=== PATIENT | female | born 1965 | race Caucasian/White ===

== ENCOUNTER 2018-05-27 13:11 | Emergency (ER) | payer OTHER, MEDICAID | END 2018-05-27 15:45 | disposition home or self-care (01) | LOC: FTE 13:11 | DX: Z00.00 Encounter for general adult medical examination without abnormal findings (principal); I12.0 Hypertensive chronic kidney disease with stage 5 chronic kidney disease or end stage renal disease; N18.5 Chronic kidney disease, stage 5; E11.22 Type 2 diabetes mellitus with diabetic chronic kidney disease; Z79.01 Long term (current) use of anticoagulants; Z79.84 Long term (current) use of oral hypoglycemic drugs | CPT/HCPCS: 71045; 99283-25 ==

== ENCOUNTER 2018-08-28 19:38 | Inpatient (IN) | payer OTHER ==
[2018-08-28] MEDS ORDERED: LABETALOL HCL 20MG INJ IV (20:30)
[2018-08-28 20:34] LABS: ADD MAN DIFF? NO
[2018-08-28 20:35] LABS: BASOPHIL # 0.1 10^3/ul (0.0-0.1); BASOPHILS % 0.8 % (0.0-2.0); EOSINOPHILS # 0.7 10^3/ul (0.0-0.5); HEMATOCRIT 32.9 % (37.0-47.0); HEMOGLOBIN 10.5 g/dl (12.0-16.0); LYMPHOCYTES # 2.2 10^3/ul (0.8-2.9); LYMPHOCYTES % 25.1 % (15.0-51.0); MEAN CORPUSCULAR HEMOGLOBIN 30.3 pg (29.0-33.0); MEAN CORPUSCULAR HGB CONC 31.9 g/dl (32.0-37.0); MEAN CORPUSCULAR VOLUME 94.8 fl (82.0-101.0); MEAN PLATELET VOLUME 10.5 fl (7.4-10.4); MONOCYTE # 0.8 10^3/ul (0.3-0.9); MONOCYTES % 8.8 % (0.0-11.0); NEUTROPHIL # 4.9 10^3/ul (1.6-7.5); NEUTROPHILS % 57.1 % (39.0-77.0); PLATELET COUNT 319 10^3/UL (140-415); RED BLOOD COUNT 3.47 10^6/ul (4.20-5.40); RED CELL DISTRIBUTION WIDTH 12.4 % (11.5-14.5)
[2018-08-28 20:35] LABS: WHITE BLOOD COUNT 8.6 10^3/ul (4.8-10.8)
[2018-08-28 20:54] LABS: ALANINE AMINOTRANSFERASE 15 IU/L (13-69); ALBUMIN 4.6 g/dl (3.3-4.9); ALBUMIN/GLOBULIN RATIO 1.02; ALKALINE PHOSPHATASE 154 IU/L (42-121); ANION GAP 19 (5-13); ASPARTATE AMINO TRANSFERASE 27 IU/L (15-46); BLOOD UREA NITROGEN 68 mg/dl (7-20); CALCIUM 9.2 mg/dl (8.4-10.2); CARBON DIOXIDE 31 mmol/L (21-31); CHLORIDE 89 mmol/L (97-110); CREATININE 9.91 mg/dl (0.44-1.00); GLUCOSE 159 mg/dl (70-220); LIPASE 179 U/L (23-300); SODIUM 139 mmol/L (135-144); TOTAL PROTEIN 9.1 g/dl (6.1-8.1)
[2018-08-28 21:00] LABS: POTASSIUM 8.1 mmol/L (3.5-5.1)
[2018-08-28] MEDS: LORAZEPAM 2 MG INJ IV (21:02)
[2018-08-28] MEDS: CA CHLORIDE 10% 10 ML SYRINGE IV (21:26)
[2018-08-28] MEDS: NA BICARBONATE 8.4% 50 ML SYG IV (21:26)
[2018-08-28] MEDS: DEXTROSE 50% 50 ML SYRINGE IV (21:28)
[2018-08-28] MEDS: NA POLYST SULFON 15 GM/60 ML BTL PO (21:29)
[2018-08-28] MEDS: INSULIN REGULAR, HUMAN 100 UNIT/1 ML 3ML VIAL IVP (21:31)
[2018-08-28] MEDS ORDERED: ONDANSETRON 4 MG INJ IV (22:00)
[2018-08-28] MEDS ORDERED: ACETAMINOPHEN 325 MG TAB PO (22:00)
[2018-08-28] MEDS: ALBUTEROL 0.5% (NEB) 2.5 MG/0.5 ML AMP INH (22:08)
[2018-08-29 01:02] LABS: ANION GAP 21 (5-13); BLOOD UREA NITROGEN 72 mg/dl (7-20); CALCIUM 10.6 mg/dl (8.4-10.2); CARBON DIOXIDE 31 mmol/L (21-31); CHLORIDE 89 mmol/L (97-110); CREATININE 10.75 mg/dl (0.44-1.00); GLUCOSE 107 mg/dl (70-220); SODIUM 141 mmol/L (135-144)
[2018-08-29 01:16] LABS: POTASSIUM 6.9 mmol/L (3.5-5.1)
[2018-08-29] MEDS: hydrALAzine 20 MG INJ IV ×2 (01:23→16:44)
[2018-08-29] MEDS ORDERED: GLUCOSE GEL 15 GRAM TUBE PO ×2 (01:30)
[2018-08-29] MEDS ORDERED: GLUCAGON 1 MG INJ IM (01:30)
[2018-08-29] MEDS ORDERED: DEXTROSE 50% 50 ML SYRINGE IV ×2 (01:30)
[2018-08-29] MEDS ORDERED: GLUCOSE GEL 15 GRAM TUBE BUCCAL (01:30)
[2018-08-29] MEDS: ACCU-CHEK XX (01:54)
[2018-08-29] MEDS ORDERED: ACETAMINOPHEN 325 MG TAB PO (02:30)
[2018-08-29] MEDS: NA POLYST SULFON 15 GM/60 ML BTL PO ×2 (02:30→15:14)
[2018-08-29] MEDS ORDERED: ALBUTEROL/IPRATROPIUM (NEB) 3 ML AMP HHN (02:30)
[2018-08-29] MEDS ORDERED: NACL 0.9% 3 ML SYG IV (02:30)
[2018-08-29] MEDS ORDERED: ONDANSETRON 4 MG INJ IV (02:30)
[2018-08-29 03:15] LABS: ADD MAN DIFF? NO
[2018-08-29 03:19] LABS: BASOPHIL # 0.1 10^3/ul (0.0-0.1); BASOPHILS % 0.6 % (0.0-2.0); EOSINOPHILS # 0.6 10^3/ul (0.0-0.5); EOSINOPHILS % 6.8 % (0.0-7.0); HEMATOCRIT 31.4 % (37.0-47.0); HEMOGLOBIN 10.1 g/dl (12.0-16.0); LYMPHOCYTES # 1.7 10^3/ul (0.8-2.9); LYMPHOCYTES % 20.2 % (15.0-51.0); MEAN CORPUSCULAR HEMOGLOBIN 30.2 pg (29.0-33.0); MEAN CORPUSCULAR HGB CONC 32.2 g/dl (32.0-37.0); MEAN PLATELET VOLUME 10.3 fl (7.4-10.4); MONOCYTE # 0.6 10^3/ul (0.3-0.9); MONOCYTES % 6.8 % (0.0-11.0); NEUTROPHIL # 5.5 10^3/ul (1.6-7.5); NEUTROPHILS % 65.4 % (39.0-77.0); PLATELET COUNT 290 10^3/UL (140-415); RED BLOOD COUNT 3.34 10^6/ul (4.20-5.40); RED CELL DISTRIBUTION WIDTH 12.5 % (11.5-14.5)
[2018-08-29 03:19] LABS: WHITE BLOOD COUNT 8.4 10^3/ul (4.8-10.8)
[2018-08-29 03:37] LABS: ALANINE AMINOTRANSFERASE 15 IU/L (13-69); ALBUMIN 4.3 g/dl (3.3-4.9); ALBUMIN/GLOBULIN RATIO 1.13; ALKALINE PHOSPHATASE 144 IU/L (42-121); ANION GAP 18 (5-13); ASPARTATE AMINO TRANSFERASE 25 IU/L (15-46); BLOOD UREA NITROGEN 71 mg/dl (7-20); CALCIUM 9.4 mg/dl (8.4-10.2); CARBON DIOXIDE 32 mmol/L (21-31); CHLORIDE 92 mmol/L (97-110); CHOL/HDL RATIO 7.7 RATIO; CHOLESTEROL 218 mg/dl (100-200); CREATININE 10.38 mg/dl (0.44-1.00); GLUCOSE 187 mg/dl (70-220); HDL CHOLESTEROL 28 mg/dl (37-92); LDL CHOLESTEROL,CALCULATED 116 mg/dl; MAGNESIUM 2.2 mg/dl (1.7-2.5); SODIUM 142 mmol/L (135-144); TOTAL PROTEIN 8.1 g/dl (6.1-8.1); TRIGLYCERIDES 372 mg/dl (0-149)
[2018-08-29 03:42] LABS: HEMOGLOBIN A1C 7.6 % (0-5.9)
[2018-08-29] MEDS: DIPHENHYDRAMINE 50 MG INJ IV (04:33)
[2018-08-29 04:35] LABS: POTASSIUM 7.4 mmol/L (3.5-5.1)
[2018-08-29 05:02] LABS: HEPATITIS B SURFACE ANTIGEN NEGATIVE (NEGATIVE)
[2018-08-29] MEDS ORDERED: HEPARIN 5,000 UNIT/0.5 ML VIAL ×2 (08:13→21:08)
[2018-08-29] MEDS: PANTOPRAZOLE (EC) 40 MG TAB PO (08:15)
[2018-08-29] MEDS: FOLIC ACID 1 MG TAB PO (08:15)
[2018-08-29] MEDS: CALCIUM ACETATE 667 MG CAP PO ×3 (08:15→18:00)
[2018-08-29] MEDS: ATENOLOL 50 MG TAB PO (08:15)
[2018-08-29] MEDS: ASPIRIN (EC) 81 MG TAB PO (08:15)
[2018-08-29] MEDS: HEPARIN SODIUM 5,000 UNIT/ML VIAL SC ×2 (08:20→21:30)
[2018-08-29] MEDS: INSULIN ASPART [NOVOLOG] 3 ML PEN SC ×4 (08:21→21:00)
[2018-08-29] MEDS: NIFEdipine (XL) 90 MG TAB PO (13:49)
[2018-08-29 13:54] LABS: LIPASE 164 U/L (23-300)
[2018-08-29] MEDS ORDERED: NA POLYST SULFON 15 GM/60 ML BTL PO (15:30)
[2018-08-29] MEDS: LORAZEPAM 1 MG TAB PO (22:05)
[2018-08-30] MEDS: ACCU-CHEK XX (02:00)
[2018-08-30 05:52] LABS: ADD MAN DIFF? NO
[2018-08-30] MEDS: PANTOPRAZOLE (EC) 40 MG TAB PO (05:54)
[2018-08-30 05:59] LABS: BASOPHILS % 0.7 % (0.0-2.0); EOSINOPHILS # 0.6 10^3/ul (0.0-0.5); EOSINOPHILS % 10.1 % (0.0-7.0); HEMATOCRIT 31.8 % (37.0-47.0); LYMPHOCYTES # 1.8 10^3/ul (0.8-2.9); LYMPHOCYTES % 31.8 % (15.0-51.0); MEAN CORPUSCULAR HEMOGLOBIN 29.9 pg (29.0-33.0); MEAN CORPUSCULAR HGB CONC 31.4 g/dl (32.0-37.0); MEAN CORPUSCULAR VOLUME 95.2 fl (82.0-101.0); MEAN PLATELET VOLUME 10.7 fl (7.4-10.4); MONOCYTE # 0.6 10^3/ul (0.3-0.9); MONOCYTES % 10.5 % (0.0-11.0); NEUTROPHIL # 2.7 10^3/ul (1.6-7.5); NEUTROPHILS % 46.7 % (39.0-77.0); PLATELET COUNT 309 10^3/UL (140-415); RED BLOOD COUNT 3.34 10^6/ul (4.20-5.40); RED CELL DISTRIBUTION WIDTH 12.8 % (11.5-14.5)
[2018-08-30 05:59] LABS: WHITE BLOOD COUNT 5.7 10^3/ul (4.8-10.8)
[2018-08-30 06:23] LABS: ALANINE AMINOTRANSFERASE 17 IU/L (13-69); ALBUMIN 3.6 g/dl (3.3-4.9); ALBUMIN/GLOBULIN RATIO 0.94; ALKALINE PHOSPHATASE 119 IU/L (42-121); ANION GAP 17 (5-13); ASPARTATE AMINO TRANSFERASE 33 IU/L (15-46); BLOOD UREA NITROGEN 52 mg/dl (7-20); CALCIUM 8.8 mg/dl (8.4-10.2); CARBON DIOXIDE 28 mmol/L (21-31); CHLORIDE 95 mmol/L (97-110); CREATININE 8.56 mg/dl (0.44-1.00); Estimated GFR 5 mL/min (>60); GLUCOSE 113 mg/dl (70-220); PHOSPHORUS 8.1 mg/dl (2.5-4.9); POTASSIUM 5.3 mmol/L (3.5-5.1); SODIUM 140 mmol/L (135-144); TOTAL PROTEIN 7.4 g/dl (6.1-8.1)
[2018-08-30] MEDS: INSULIN ASPART [NOVOLOG] 3 ML PEN SC ×2 (08:00→12:52)
[2018-08-30] MEDS: CALCIUM ACETATE 667 MG CAP PO ×2 (08:59→12:31)
[2018-08-30] MEDS: FOLIC ACID 1 MG TAB PO (09:00)
[2018-08-30] MEDS ORDERED: HEPARIN 5,000 UNIT/0.5 ML VIAL (10:10)
[2018-08-30] MEDS: ASPIRIN (EC) 81 MG TAB PO (10:12)
[2018-08-30] MEDS: NA POLYST SULFON 15 GM/60 ML BTL PO (10:12)
[2018-08-30] MEDS: NIFEdipine (XL) 90 MG TAB PO (10:12)
[2018-08-30] MEDS: HEPARIN SODIUM 5,000 UNIT/ML VIAL SC (10:20)
[2018-08-31] MEDS ORDERED: ATENOLOL 25 MG TAB PO (09:00)
[2018-08-31] MEDS ORDERED: ATENOLOL 50 MG TAB PO (09:00)
== END 2018-08-30 16:36 | disposition home or self-care (01) | DRG 640 ==
LOC: E/R 19:38 → 6WM 21:47
PROC: 5A1D70Z Performance of Urinary Filtration, Intermittent, Less than 6 Hours Per Day (ICD-10-PCS; principal; 2018-08-29)
DX: E87.5 Hyperkalemia (principal); N18.6 End stage renal disease; I12.0 Hypertensive chronic kidney disease with stage 5 chronic kidney disease or end stage renal disease; Z91.14 Patient's other noncompliance with medication regimen; E11.22 Type 2 diabetes mellitus with diabetic chronic kidney disease; R19.7 Diarrhea, unspecified; I16.0 Hypertensive urgency; I44.0 Atrioventricular block, first degree; E88.81 Metabolic syndrome and other insulin resistance; E78.5 Hyperlipidemia, unspecified; D63.1 Anemia in chronic kidney disease; K21.9 Gastro-esophageal reflux disease without esophagitis; E73.9 Lactose intolerance, unspecified; Z88.0 Allergy status to penicillin; Z91.15 Patient's noncompliance with renal dialysis; Z99.2 Dependence on renal dialysis; T50.905A Adverse effect of unspecified drugs, medicaments and biological substances, initial encounter; Z87.891 Personal history of nicotine dependence
CPT/HCPCS: 36415; 80048; 80053; 80061; 82962; 83036; 83690; 83735; 84100; 84132; 84443; 85025; 87081; 87340; 90935; 93005; 94664; 96374; 96375; 99291-25

== ENCOUNTER 2018-10-30 07:26 | Inpatient (IN) | payer OTHER ==
[2018-10-30] MEDS: NITROGLYCERIN 2% 1 GM OINT PKT TD (07:51)
[2018-10-30 08:10] LABS: Allen Test ACCEPTAB; Arterial Base Excess 3.6 mmol/L (-3.0-3); Arterial Blood Gas Oxygen Sat 93.5 mmHG (95.0-98.0); Arterial COHb 1.1 % (0.0-3.0); Arterial Fraction of Oxyhgb 92.2 % (93.0-99.0); Arterial HCO3 29.7 mmol/L (22.0-26.0); Arterial MetHb 0.3 % (0.0-1.5); Arterial pCO2 52.1 mmhg (35-45); MODE NASAL CANNULA; Site Right Radial
[2018-10-30 08:13] LABS: ADD MAN DIFF? NO
[2018-10-30 08:14] LABS: WHITE BLOOD COUNT 14.4 10^3/ul (4.8-10.8)
[2018-10-30 08:14] LABS: BASOPHIL # 0.1 10^3/ul (0.0-0.1); BASOPHILS % 0.6 % (0.0-2.0); EOSINOPHILS % 6.7 % (0.0-7.0); HEMATOCRIT 33.2 % (37.0-47.0); HEMOGLOBIN 10.5 g/dl (12.0-16.0); LYMPHOCYTES # 1.9 10^3/ul (0.8-2.9); MEAN CORPUSCULAR HGB CONC 31.6 g/dl (32.0-37.0); MEAN CORPUSCULAR VOLUME 94.9 fl (82.0-101.0); MEAN PLATELET VOLUME 9.5 fl (7.4-10.4); MONOCYTE # 0.9 10^3/ul (0.3-0.9); MONOCYTES % 5.9 % (0.0-11.0); NEUTROPHIL # 10.6 10^3/ul (1.6-7.5); NEUTROPHILS % 73.4 % (39.0-77.0); PLATELET COUNT 441 10^3/UL (140-415)
[2018-10-30 08:36] LABS: ANION GAP 18 (5-13); BLOOD UREA NITROGEN 55 mg/dl (7-20); CALCIUM 9.6 mg/dl (8.4-10.2); CARBON DIOXIDE 30 mmol/L (21-31); CHLORIDE 96 mmol/L (97-110); CREATININE 9.01 mg/dl (0.44-1.00); Estimated GFR 5 mL/min (>60); GLUCOSE 210 mg/dl (70-220); POTASSIUM 4.6 mmol/L (3.5-5.1); SODIUM 144 mmol/L (135-144)
[2018-10-30 08:48] LABS: TROPONIN-I 0.036 ng/ml (0.000-0.120)
[2018-10-30] MEDS: hydrALAzine 20 MG INJ IV (08:54)
[2018-10-30] MEDS ORDERED: NACL 0.9% 3 ML SYG IV (10:30)
[2018-10-30] MEDS: FUROSEMIDE 40 MG INJ IV (10:37)
[2018-10-30] MEDS: CALCIUM ACETATE 667 MG CAP PO ×2 (12:37→17:54)
[2018-10-30 13:08] LABS: HEPATITIS B SURFACE ANTIGEN NEGATIVE (NEGATIVE)
[2018-10-30 13:21] LABS: LACTIC ACID 1.2 mmol/L (0.5-2.0)
[2018-10-30 13:53] LABS: HEPATITIS B SURFACE ANTIBODY POSITIVE (NEGATIVE)
[2018-10-30] MEDS: ONDANSETRON 4 MG INJ IV (14:53)
[2018-10-30] MEDS: ACETAMINOPHEN 325 MG TAB PO (17:54)
[2018-10-30] MEDS: ATENOLOL 50 MG TAB PO (20:04)
[2018-10-30] MEDS: HEPARIN 5,000 UNIT/1 ML VIAL SC (20:15)
[2018-10-30] MEDS ORDERED: DEXTROSE 50% 50 ML SYRINGE IV ×2 (21:00)
[2018-10-30] MEDS ORDERED: LORAZEPAM 1 MG TAB PO ×2 (21:00→22:00)
[2018-10-30] MEDS ORDERED: GLUCOSE GEL 15 GRAM TUBE BUCCAL (21:00)
[2018-10-30] MEDS ORDERED: GLUCOSE GEL 15 GRAM TUBE PO ×2 (21:00)
[2018-10-30] MEDS ORDERED: GLUCAGON 1 MG INJ IM (21:00)
[2018-10-30] MEDS: INSULIN ASPART [NOVOLOG] 3 ML PEN SC (21:00)
[2018-10-30] MEDS ORDERED: PROMETHAZINE/CODEINE 5ML CUP PO (22:00)
[2018-10-30] MEDS ORDERED: traMADol 50 MG TAB PO (22:30)
[2018-10-31] MEDS: ACCU-CHEK XX (01:59)
[2018-10-31] MEDS: hydrALAzine 20 MG INJ IV (03:29)
[2018-10-31] MEDS: ACETAMINOPHEN 325 MG TAB PO (04:34)
[2018-10-31 05:40] LABS: ADD MAN DIFF? NO
[2018-10-31 06:02] LABS: HEMOGLOBIN A1C 7.9 % (0-5.9)
[2018-10-31 06:20] LABS: ALANINE AMINOTRANSFERASE 13 IU/L (13-69); ALBUMIN 4.2 g/dl (3.3-4.9); ALBUMIN/GLOBULIN RATIO 1.05; ALKALINE PHOSPHATASE 119 IU/L (42-121); ANION GAP 14 (5-13); ASPARTATE AMINO TRANSFERASE 26 IU/L (15-46); BILIRUBIN,INDIRECT 0.1 mg/dl (0-1.1); BILIRUBIN,TOTAL 0.1 mg/dl (0.2-1.3); BLOOD UREA NITROGEN 36 mg/dl (7-20); CALCIUM 9.7 mg/dl (8.4-10.2); CARBON DIOXIDE 31 mmol/L (21-31); CHLORIDE 92 mmol/L (97-110); CREATININE 6.24 mg/dl (0.44-1.00); Estimated GFR 7 mL/min (>60); GLUCOSE 142 mg/dl (70-220); POTASSIUM 4.7 mmol/L (3.5-5.1); SODIUM 137 mmol/L (135-144); TOTAL PROTEIN 8.2 g/dl (6.1-8.1)
[2018-10-31 06:51] LABS: BASOPHIL # 0.1 10^3/ul (0.0-0.1); EOSINOPHILS # 0.6 10^3/ul (0.0-0.5); EOSINOPHILS % 6.8 % (0.0-7.0); HEMATOCRIT 30.1 % (37.0-47.0); HEMOGLOBIN 9.6 g/dl (12.0-16.0); LYMPHOCYTES # 2.2 10^3/ul (0.8-2.9); LYMPHOCYTES % 27.6 % (15.0-51.0); MEAN CORPUSCULAR HEMOGLOBIN 30.2 pg (29.0-33.0); MEAN CORPUSCULAR HGB CONC 31.9 g/dl (32.0-37.0); MEAN CORPUSCULAR VOLUME 94.7 fl (82.0-101.0); MONOCYTE # 0.7 10^3/ul (0.3-0.9); MONOCYTES % 9.2 % (0.0-11.0); NEUTROPHIL # 4.4 10^3/ul (1.6-7.5); NEUTROPHILS % 55.2 % (39.0-77.0); PLATELET COUNT 399 10^3/UL (140-415); RED BLOOD COUNT 3.18 10^6/ul (4.20-5.40); RED CELL DISTRIBUTION WIDTH 13.1 % (11.5-14.5)
[2018-10-31] MEDS: INSULIN ASPART [NOVOLOG] 3 ML PEN SC ×2 (07:51→12:02)
[2018-10-31] MEDS: ASPIRIN (EC) 81 MG TAB PO (09:07)
[2018-10-31] MEDS: AMLODIPINE 5 MG TAB PO (09:08)
[2018-10-31] MEDS: CALCIUM ACETATE 667 MG CAP PO ×2 (09:08→11:58)
[2018-10-31] MEDS: ATENOLOL 50 MG TAB PO (09:08)
[2018-10-31] MEDS: HEPARIN 5,000 UNIT/1 ML VIAL SC (09:17)
== END 2018-10-31 14:40 | disposition home or self-care (01) | DRG 189 ==
LOC: E/R 07:26 → 6WM 10:06
PROC: 5A1D70Z Performance of Urinary Filtration, Intermittent, Less than 6 Hours Per Day (ICD-10-PCS; principal; 2018-10-30)
DX: J96.01 Acute respiratory failure with hypoxia (principal); N18.6 End stage renal disease; I16.1 Hypertensive emergency; I12.0 Hypertensive chronic kidney disease with stage 5 chronic kidney disease or end stage renal disease; D63.1 Anemia in chronic kidney disease; E87.70 Fluid overload, unspecified; Z99.2 Dependence on renal dialysis
CPT/HCPCS: 36600; 71045; 80048; 80053; 82803; 82962; 83036; 83605; 84484; 85025; 86706; 87340; 90935; 93005; 94660; 96374; 99291-25